=== PATIENT | female | born 1975 | race Two or more races ===

== ENCOUNTER 2016-08-19 01:55 | Inpatient (IN) | payer BC ==
[2016-08-19] MEDS ORDERED: ONDANSETRON HCL INJ/PF 4 MG/2 ML SDV IV ONE (03:46)
[2016-08-19] MEDS ORDERED: NORMAL SALINE 1000 ML 1,000 ML IV ONE ×2 (03:47→06:44)
[2016-08-19] MEDS ORDERED: FAMOTIDINE INJ/PF 20 MG/2 ML SDV IV ONE (03:47)
--- NOTE | 2016-08-19 04:10 | ER Document Report ---
ED General - General Chief Complaint: Abdominal Pain Stated Complaint: ABDOMINAL PAIN Notes: Patient is a 41-year-old female presents with complaint of upper abdominal pain. This occurred after eating [place] and chicken. She says she initially started having belching. Pain has been mainly epigastric and right upper quadrant pain. Some vomiting. No blood in her vomit. No dark stools. No blood in her stools. No other complaints at this time. No dysuria. No previous history of abdominal surgeries. TRAVEL OUTSIDE OF THE [place] IN LAST 30 DAYS: No - Related Data Allergies/Adverse Reactions: No Known Allergies Allergy (Unverified 08/19/16 02:10) Past Medical History - General Information source: Patient - Social History Smoking Status: Never Smoker Frequency of alcohol use: None Drug Abuse: None Family History: Reviewed & Not Pertinent Surgical Hx: Negative - Immunizations Hx Diphtheria, Pertussis, Tetanus Vaccination: Yes Review of Systems - Review of Systems Notes: My Normal Review Basic REVIEW OF SYSTEMS: CONSTITUTIONAL : Denies fever, chills, or sweats. Denies recent illness. RESPIRATORY: Denies cough, cold, or chest congestion. Denies shortness of breath, difficulty breathing, or wheezing. GASTROINTESTINAL: Gastric and right upper quadrant abdominal pain. Some nausea and vomiting.. Denies constipation. Last BM: GENITOURINARY: Denies difficulty urinating, painful urination, burning, frequency, or blood in urine. FEMALE GENITOURINARY: Denies vaginal bleeding, abnormal or irregular periods. MUSCULOSKELETAL: Denies neck or back pain or joint pain or swelling. SKIN: Denies rash or skin lesions. NEUROLOGICAL: Denies altered mental status or loss of consciousness. Denies headache. Denies weakness or paralysis or loss of use of either side. Denies problems with gait or speech. Denies sensory or motor loss. ALL OTHER SYSTEMS REVIEWED AND NEGATIVE. Physical Exam - Vital signs Vitals: Temp Pulse Resp BP Pulse Ox 97.7 F 85 22 H 135/71 H 100 08/19/16 02:04 08/19/16 02:04 08/19/16 02:04 08/19/16 02:04 08/19/16 02:04 - Notes Notes: General Appearance: Well nourished, alert, cooperative, no acute distress, mild to moderate obvious discomfort. Vitals: reviewed, See vital signs table. Head: no swelling or tenderness to the head Eyes: PERRL, EOMI, Conjuctiva clear Mouth: No decreasd moisture Neck: Supple, no neck tenderness, No thyromegaly Lungs: No wheezing, No rales, No rhonci, No accessory muscle use, good air exchange bilaterally. Heart: Normal rate, Regular rythm, No murmur, no rub Abdomen: Normal BS, soft, No rigidity, mild to moderate right upper quadrant and epigastric abdominal tenderness to palpation, pain is the worst over the epigastric region., No guarding, no rebound, no abdominal masses, no organomegaly Extremities: strength 5/5 in all extremities, good pulses in all extremities, no swelling or tenderness in the extremities, no edema. Skin: warm, dry, appropriate color, no rash Neuro: speech clear, oriented x 3, normal affect, responds appropriately to questions. Course - Vital Signs Vital signs: Temp Pulse Resp BP Pulse Ox 97.7 F 85 22 H 135/71 H 100 08/19/16 02:04 08/19/16 02:04 08/19/16 02:04 08/19/16 02:04 08/19/16 02:04 - Laboratory Result Diagrams: 08/19/16 04:10 08/19/16 04:10 Laboratory results interpreted by me: 08/19/16 08/19/16 04:10 04:10 WBC 14.6 H RDW 14.3 H Seg Neutrophils % 89.2 H Lymphocytes % 6.3 L Absolute Neutrophils 13.0 H Glucose 127 H AST 485 H ALT 284 H Lipase 23968.2 H - Transfer of Care Notes: 08/19/16 06:36 Patient has what appears to be gallstone pancreatitis. I did call and speak with Dr. Murray to evaluate the patient and will admit the patient. Dictation of this chart was performed using voice recognition software; therefore, there may be some unintended grammatical errors. Discharge - Discharge Clinical Impression: Gallstone pancreatitis Condition: Stable Disposition: ADMITTED INPATIENT Admitting Provider: Surgicalist Unit Admitted: Surgical Floor
[2016-08-19 04:34] LABS: ABSOLUTE LYMPHOCYTES (AUTO) 0.9 10^3/uL (0.5-4.7); ABSOLUTE MONOCYTES (AUTO) 0.6 10^3/uL (0.1-1.4); BASOPHILS % (AUTO) 0.1 % (0-2); EOSINOPHILS % (AUTO) 0.2 % (0-6); HEMATOCRIT 38.9 % (36.0-47.0); HEMOGLOBIN 13.3 g/dL (12.0-15.5); LYMPHOCYTES % (AUTO) 6.3 % (13-45); MEAN CORPUSCULAR HEMOGLOBIN 29.7 pg (27.0-33.4); MEAN CORPUSCULAR HGB CONC 34.1 g/dL (32.0-36.0); MEAN CORPUSCULAR VOLUME 87 fl (80-97); MONOCYTES % (AUTO) 4.2 % (3-13); RED BLOOD COUNT 4.46 10^6/uL (3.72-5.28); RED CELL DISTRIBUTION WIDTH 14.3 % (11.5-14.0); SEGMENTED NEUTROPHILS % (AUTO) 89.2 % (42-78); WHITE BLOOD COUNT 14.6 10^3/uL (4.0-10.5)
[2016-08-19 04:48] LABS: ALANINE AMINOTRANSFERASE 284 U/L (9-52); ALKALINE PHOSPHATASE 98 U/L (38-126); ANION GAP 11 (5-19); ASPARTATE AMINO TRANSFERASE 485 U/L (14-36); BILIRUBIN,TOTAL 0.8 mg/dL (0.2-1.3); BLOOD UREA NITROGEN 12 mg/dL (7-20); CALCIUM 9.5 mg/dL (8.4-10.2); CARBON DIOXIDE 29 mmol/L (22-30); CHLORIDE 103 mmol/L (98-107); CREATININE RESULT 0.57 mg/dL (0.52-1.25); GLUCOSE 127 mg/dL (75-110); SODIUM 142.5 mmol/L (137-145); TOTAL PROTEIN 7.4 g/dL (6.3-8.2)
[2016-08-19 05:26] LABS: LIPASE 29213.2 U/L (23-300)
--- NOTE | 2016-08-19 06:49 | PDOC H&P ---
History of Present Illness Admission Date/PCP: Daily Patient complains of: Abdominal pain History of Present Illness: CYDNEY MCINTOSH is a 41 year old female presents to the emergency department at [facility] via EMS complaining of abdominal pain, acute onset after eating, associated with nausea, bloating and excessive belching. She also had 2 serious episodes of vomiting. Symptoms similar to previous symptoms she has had over the past 3 years but but more severe and she thought she had a gallbladder problem but was never evaluated. sHe was seen in the emergency department by Dr. Sinan Williamson, found to have a lipase level of 29,000, and a gallbladder demonstrating gall stones. sHe was evaluated and felt to benefit from admission to the surgical service for definitive management. Past Surgical History Past Surgical History: Reports: None Social History Smoking Status: Never Smoker Frequency of Alcohol Use: None Hx Recreational Drug Use: No Hx Prescription Drug Abuse: No Family History Family History: Reviewed & Not Pertinent Parental Family History Reviewed: Yes Children Family History Reviewed: Yes Sibling(s) Family History Reviewed.: Yes Medication/Allergy Allergies/Adverse Reactions: No Known Allergies Allergy (Unverified 08/19/16 02:10) Review of Systems Constitutional: PRESENT: as per HPI Eyes: PRESENT: as per HPI Ears: PRESENT: as per HPI Nose, Mouth, and Throat: PRESENT: as per HPI Breasts: PRESENT: as per HPI Cardiovascular: PRESENT: as per HPI Respiratory: PRESENT: as per HPI Gastrointestinal: PRESENT: abdominal pain, bloating, other - Patient states she has normal bowel movements; never had a colonoscopy. Physical Exam Vital Signs: Temp Pulse Resp BP Pulse Ox 97.7 F 85 22 H 135/71 H 100 08/19/16 02:04 08/19/16 02:04 08/19/16 02:04 08/19/16 02:04 08/19/16 02:04 Intake & Output 08/17/16 08/18/16 08/19/16 06:59 06:59 06:59 Weight 67.1 kg General appearance: PRESENT: mild distress Head exam: PRESENT: normocephalic Eye exam: PRESENT: EOMI Ear exam: PRESENT: normal external ear exam Mouth exam: PRESENT: moist Neck exam: PRESENT: full ROM Respiratory exam: PRESENT: clear to auscultation eddie Cardiovascular exam: PRESENT: RRR Pulses: PRESENT: normal carotid pulses, normal radial pulses, normal femoral pulses GI/Abdominal exam: PRESENT: other - Abdomen slightly distended, tender especially epigastric area. No rigidity some guarding. Extremities exam: PRESENT: full ROM Musculoskeletal exam: PRESENT: full ROM Neurological exam: PRESENT: alert, altered, oriented to time, oriented to situation Psychiatric exam: PRESENT: anxious Skin exam: PRESENT: dry Results Laboratory Results: 08/19/16 04:10 08/19/16 04:10 08/19/16 08/19/16 04:10 04:10 WBC 14.6 H RBC 4.46 Hgb 13.3 Hct 38.9 MCV 87 MCH 29.7 MCHC 34.1 RDW 14.3 H Plt Count 229 Seg Neutrophils % 89.2 H Lymphocytes % 6.3 L Monocytes % 4.2 Eosinophils % 0.2 Basophils % 0.1 Absolute Neutrophils 13.0 H Absolute Lymphocytes 0.9 Absolute Monocytes 0.6 Absolute Eosinophils 0.0 Absolute Basophils 0.0 Sodium 142.5 Potassium 4.0 Chloride 103 Carbon Dioxide 29 Anion Gap 11 BUN 12 Creatinine 0.57 Est GFR ( Amer) > 60 Est GFR (Non-Af Amer) > 60 Glucose 127 H Calcium 9.5 Total Bilirubin 0.8 AST 485 H ALT 284 H Alkaline Phosphatase 98 Total Protein 7.4 Albumin 4.0 Lipase 93258.2 H Impressions: Abdomen Ultrasound 08/19/16 03:47 IMPRESSION: GALLSTONES. POSITIVE SONOGRAPHIC MATHEW SIGN. Status: Image reviewed by me Assessment & Plan - Diagnosis (1) Gallstone pancreatitis Is this a current diagnosis for this admission?: YesPlan: 1. Patient presents with classic gallstone pancreatitis. She is tender, without peritoneal signs. Management will include nothing by mouth, IV fluids, intravenous antibiotics, and bowel rest. Once her lipase level has normalized, she will be candidate for interval laparoscopic cholecystectomy with intraoperative cholangiography. The cholangiogram is abnormal, with the patient deteriorates in the interim, she may require ERCP. 2. We will also manage patient's pain. - Time Time Spent: 30 to 50 Minutes Critical Time spent with patient: 15-24 minutes Medications reviewed and adjusted accordingly: Yes Anticipated discharge: Home - Inpatient Certification Based on my medical assessment, after consideration of the patient's comorbidities, presenting symptoms, or acuity I expect that the services needed warrant INPATIENT care.: Yes I certify that my determination is in accordance with my understanding of Medicare's requirements for reasonable and necessary INPATIENT services [42 CFR 412.3e].: Yes Medical Necessity: Need For IV Fluids, Need for Pain Control, Need for IV Antibiotics, Need for Surgery
[2016-08-19] MEDS: ONDANSETRON HCL INJ/PF 4 MG/2 ML SDV IV PRN (07:07)
[2016-08-19] MEDS: MORPHINE SULFATE 10 MG/ML INJ IV PRN ×2 (07:07→11:58)
--- NOTE | 2016-08-19 08:50 | PDOC PROGRESS REPORT ---
Subjective Progress Note for:: 08/19/16 Subjective:: Patient denies nausea, vomiting, fever, she still having abdominal pain but it' s better. Physical Exam Vital Signs: Temp Pulse Resp BP Pulse Ox 97.8 F 79 18 123/73 96 08/19/16 07:42 08/19/16 07:42 08/19/16 07:42 08/19/16 07:42 08/19/16 07:42 General appearance: PRESENT: no acute distress, cooperative Head exam: PRESENT: atraumatic, normocephalic Respiratory exam: PRESENT: clear to auscultation eddie GI/Abdominal exam: PRESENT: soft, tenderness - In the epigastric area. ABSENT: distended, firm, guarding, rebound, rigid Neurological exam: PRESENT: alert, awake Results Impressions: Abdomen Ultrasound 08/19/16 03:47 IMPRESSION: GALLSTONES. POSITIVE SONOGRAPHIC MATHEW SIGN. Assessment & Plan - Diagnosis (1) Gallstone pancreatitis Is this a current diagnosis for this admission?: YesPlan: Patient is 41 years old female who came to the hospital with abdominal pain, she is having a clinical picture of gallstone pancreatitis with the presence of gallstones in the gallbladder, she has elevated lipase and deranged liver function test, plan: Patient to be kept nothing by mouth, IV hydration, pain control, serial examination, strict ins and outs, GI prophylaxis. Plan for interval laparoscopic cholecystectomy possible open before discharge. Patient expressed understanding and agree to proceed with the procedure.
[2016-08-19] MEDS: FAMOTIDINE INJ/PF 20 MG/2 ML SDV IV SCH ×2 (10:57→21:34)
[2016-08-19] MEDS ORDERED: INFLUENZA ADLT QUAD (36MOS+) 2016-17 VAC 0.5 ML SYR IM PRN (11:10)
[2016-08-19] MEDS ORDERED: ACETAMINOPHEN 325 MG TABLET PO PRN (11:20)
[2016-08-19] MEDS ORDERED: AMPICILLIN SODIUM/SULBACTAM NA 3 GM in NORMAL SALINE 100 ML IV SCH (14:00)
[2016-08-19] MEDS ORDERED: NORMAL SALINE 1000 ML 1,000 ML IV PRN (15:03)
[2016-08-20] MEDS: KETOROLAC TROMETHAMINE 60 MG/2 ML SDV IV PRN ×2 (02:14→15:04)
[2016-08-20] MEDS: ONDANSETRON HCL INJ/PF 4 MG/2 ML SDV IV PRN ×2 (02:14→12:51)
[2016-08-20 07:38] LABS: ABSOLUTE EOSINOPHILS # (AUTO) 0.1 10^3/uL (0.0-0.6); ABSOLUTE LYMPHOCYTES (AUTO) 1.4 10^3/uL (0.5-4.7); ABSOLUTE MONOCYTES (AUTO) 0.7 10^3/uL (0.1-1.4); ABSOLUTE NEUT (AUTO) 8.4 10^3/uL (1.7-8.2); BASOPHILS % (AUTO) 0.2 % (0-2); HEMATOCRIT 32.2 % (36.0-47.0); HGB HCT DIFFERENCE 1.4; LYMPHOCYTES % (AUTO) 13.4 % (13-45); MEAN CORPUSCULAR HEMOGLOBIN 29.9 pg (27.0-33.4); MEAN CORPUSCULAR HGB CONC 34.7 g/dL (32.0-36.0); MEAN CORPUSCULAR VOLUME 86 fl (80-97); MONOCYTES % (AUTO) 6.8 % (3-13); RED BLOOD COUNT 3.73 10^6/uL (3.72-5.28); RED CELL DISTRIBUTION WIDTH 14.2 % (11.5-14.0); SEGMENTED NEUTROPHILS % (AUTO) 78.6 % (42-78); WHITE BLOOD COUNT 10.7 10^3/uL (4.0-10.5)
[2016-08-20 07:39] LABS: HEMOGLOBIN 11.2 g/dL (12.0-15.5)
[2016-08-20 07:45] LABS: ALANINE AMINOTRANSFERASE 131 U/L (9-52); ALBUMIN 2.6 g/dL (3.5-5.0); ALKALINE PHOSPHATASE 66 U/L (38-126); ANION GAP 10 (5-19); ASPARTATE AMINO TRANSFERASE 66 U/L (14-36); BILIRUBIN,TOTAL 0.7 mg/dL (0.2-1.3); BLOOD UREA NITROGEN 7 mg/dL (7-20); CARBON DIOXIDE 22 mmol/L (22-30); CHLORIDE 109 mmol/L (98-107); GLUCOSE 62 mg/dL (75-110); POTASSIUM 3.3 mmol/L (3.6-5.0); SODIUM 140.5 mmol/L (137-145)
[2016-08-20] MEDS: POTASSI CL 20 MEQ/D5-1/2NS 1L 1,000 ML IV PRN ×2 (09:32→17:55)
[2016-08-20] MEDS: FAMOTIDINE INJ/PF 20 MG/2 ML SDV IV SCH ×2 (09:32→21:12)
--- NOTE | 2016-08-20 10:04 | PDOC PROGRESS REPORT ---
Subjective Progress Note for:: 08/20/16 Subjective:: Some nausea and abdominal pain. No vomiting. Physical Exam Vital Signs: Temp Pulse Resp BP Pulse Ox 98.6 F 74 16 108/57 L 98 08/20/16 08:13 08/20/16 08:13 08/20/16 08:13 08/20/16 08:13 08/20/16 08:13 Intake & Output 08/19/16 08/20/16 08/21/16 06:59 06:59 06:59 Intake Total 450 Output Total 400 Balance 50 Weight 68 kg General appearance: PRESENT: no acute distress, obese Eye exam: PRESENT: EOMI Mouth exam: PRESENT: tongue midline GI/Abdominal exam: PRESENT: soft, tenderness - Tender in her epigastrium, and less so, across her upper abdomen. No Cadena sign. No back pain.. ABSENT: distended, Cadena's sign Neurological exam: PRESENT: alert, oriented to situation Results Laboratory Results: 08/20/16 07:23 08/20/16 07:17 08/20/16 08/20/16 07:17 07:23 WBC 10.7 H RBC 3.73 Hgb 11.2 L D Hct 32.2 L MCV 86 MCH 29.9 MCHC 34.7 RDW 14.2 H Plt Count 166 Seg Neutrophils % 78.6 H Lymphocytes % 13.4 Monocytes % 6.8 Eosinophils % 1.0 Basophils % 0.2 Absolute Neutrophils 8.4 H Absolute Lymphocytes 1.4 Absolute Monocytes 0.7 Absolute Eosinophils 0.1 Absolute Basophils 0.0 Sodium 140.5 Potassium 3.3 L Chloride 109 H Carbon Dioxide 22 Anion Gap 10 BUN 7 Creatinine 0.50 L Est GFR ( Amer) > 60 Est GFR (Non-Af Amer) > 60 Glucose 62 L Calcium 8.0 L Total Bilirubin 0.7 AST 66 H ALT 131 H Alkaline Phosphatase 66 Total Protein 5.0 L Albumin 2.6 L Lipase 2095.0 H Impressions: Abdomen Ultrasound 08/19/16 03:47 IMPRESSION: GALLSTONES. POSITIVE SONOGRAPHIC CADENA SIGN. Assessment & Plan - Diagnosis (1) Gallstone pancreatitis Is this a current diagnosis for this admission?: YesPlan: Lipase is down to 2095 from 29,213. Pain is present but decreased compared to yesterday. We discussed gallstone pancreatitis in detail. Pictures were drawn. We discussed laparoscopic cholecystectomy in detail. Questions were answered. We discussed the risks, benefits and alternatives including , heart attack, stroke, blood clots in the legs, blood clots in lungs, pneumonia, bleeding, infection, hernia, bile leak, failure of symptoms to resolve, long- term diarrhea, damage to surrounding structures such as bladder, bowels, blood vessels or bile duct resulting in serious long-term health issues. We discussed the possibility of retained stone with need for further procedure such as ERCP. we discussed that we need to wait for further improvement in pain and normalization of her lipase to proceed with gallbladder surgery. She understands.
[2016-08-20] MEDS: MORPHINE SULFATE 10 MG/ML INJ IV PRN (12:36)
[2016-08-21] MEDS: POTASSI CL 20 MEQ/D5-1/2NS 1L 1,000 ML IV PRN ×2 (01:39→09:14)
[2016-08-21 07:56] LABS: ALANINE AMINOTRANSFERASE 93 U/L (9-52); ALBUMIN 3.1 g/dL (3.5-5.0); ALKALINE PHOSPHATASE 57 U/L (38-126); ANION GAP 9 (5-19); ASPARTATE AMINO TRANSFERASE 37 U/L (14-36); BILIRUBIN,TOTAL 0.7 mg/dL (0.2-1.3); BLOOD UREA NITROGEN 3 mg/dL (7-20); CALCIUM 8.7 mg/dL (8.4-10.2); CARBON DIOXIDE 23 mmol/L (22-30); CHLORIDE 110 mmol/L (98-107); CREATININE RESULT 0.47 mg/dL (0.52-1.25); GLUCOSE 106 mg/dL (75-110); LIPASE 502.7 U/L (23-300); SODIUM 141.6 mmol/L (137-145); TOTAL PROTEIN 5.7 g/dL (6.3-8.2)
[2016-08-21] MEDS ORDERED: BUPIVACAINE HCL 0.25 % INJ/PF (2.5 MG/1 ML) 30 ML VIAL ONE (08:44)
[2016-08-21] MEDS ORDERED: KETOROLAC TROMETHAMINE INJ/PF 30 MG/1 ML SDV IV PRN (10:04)
[2016-08-21] MEDS ORDERED: HYDROMORPHONE HCL INJ/PF 2 MG/ML AMPULE ONE (10:06)
[2016-08-21] MEDS ORDERED: FENTANYL CITRATE INJ/PF 250 MCG/5 ML AMPULE ONE (10:06)
[2016-08-21] MEDS ORDERED: MIDAZOLAM 2 MG/2 ML INJ ONE (10:06)
[2016-08-21] MEDS ORDERED: ACETAMINOPHEN 100 ML IV ONE (10:07)
[2016-08-21] MEDS ORDERED: PROPOFOL INJ 200 MG/20 ML VIAL IV ONE (10:07)
--- NOTE | 2016-08-21 10:10 | PDOC PROGRESS REPORT ---
Subjective Progress Note for:: 08/21/16 Subjective:: Patient states she feels better Physical Exam Vital Signs: Temp Pulse Resp BP Pulse Ox 98.9 F 83 16 119/61 100 08/21/16 09:01 08/21/16 09:01 08/21/16 09:01 08/21/16 09:01 08/21/16 09:01 Intake & Output 08/20/16 08/21/16 08/22/16 06:59 06:59 06:59 Intake Total 450 1500 Output Total 400 Balance 50 1500 Weight 68 kg 68 kg General appearance: PRESENT: no acute distress GI/Abdominal exam: PRESENT: other - Much less tender abdomen in the epigastric area. No peritoneal signs no rigidity. Results Laboratory Results: 08/20/16 07:23 08/21/16 07:24 08/20/16 08/21/16 08/21/16 07:17 07:24 07:24 Sodium 141.6 Potassium 4.0 Chloride 110 H Carbon Dioxide 23 Anion Gap 9 BUN 3 L Creatinine 0.47 L Est GFR ( Amer) > 60 Est GFR (Non-Af Amer) > 60 Glucose 106 Calcium 8.7 Magnesium 1.9 Total Bilirubin 0.7 AST 37 H ALT 93 H Alkaline Phosphatase 57 Total Protein 5.7 L Albumin 3.1 L Lipase 502.7 H Serum HCG, Qual NEGATIVE Impressions: Abdomen Ultrasound 08/19/16 03:47 IMPRESSION: GALLSTONES. POSITIVE SONOGRAPHIC MATHEW SIGN. Assessment & Plan - Diagnosis (1) Gallstone pancreatitis Is this a current diagnosis for this admission?: YesPlan: 1. Patient is clinically improved, and lipase diminished to near normal. Her abdomen is fairly benign. I think it is safe to proceed with laparoscopic possible open cholecystectomy, with intraoperative cholangiography. I reviewed the risks benefits and alternatives as well as the mechanics of the operation to the patient. Believe she understands and agrees to proceed. 2. Patient understands that her for her cholangiogram demonstrates retained common bile duct stone, she will need postoperative ERCP. Again, she agrees to proceed.
[2016-08-21] MEDS ORDERED: CEFAZOLIN INJ 1 GM VIAL ONE (10:20)
[2016-08-21] MEDS ORDERED: CEFAZOLIN SODIUM 1 GM in DEXTROSE 5%-WATER 50 ML IV PRN (10:42)
[2016-08-21] MEDS ORDERED: PROMETHAZINE HCL INJ 25 MG/1 ML VIAL IV PRN ×2 (10:58)
[2016-08-21] MEDS ORDERED: MEPERIDINE HCL/PF INJ 25 MG/1 ML DISP.SYRIN IV PRN (10:58)
[2016-08-21] MEDS ORDERED: MORPHINE SULFATE 10 MG/ML INJ IV PRN (10:58)
[2016-08-21] MEDS ORDERED: FENTANYL CITRATE INJ/PF 100 MCG/2 ML AMPUL IV PRN ×3 (10:58)
[2016-08-21] MEDS ORDERED: DIPHENHYDRAMINE HCL 50 MG/ML VIAL IV PRN (10:58)
[2016-08-21] MEDS ORDERED: OXYCODONE-ACETAMINOPHEN 5-325 MG TABLET PO PRN ×2 (10:58)
[2016-08-21] MEDS: FAMOTIDINE INJ/PF 20 MG/2 ML SDV IV SCH ×2 (11:13→22:31)
--- NOTE | 2016-08-21 11:45 | Operative Report ---
Operative Report DATE OF SURGERY: 08/21/16 PREOPERATIVE DIAGNOSIS: Symptomatic cholelithiasis cholecystitis. Gallstone pancreatitis POSTOPERATIVE DIAGNOSIS: Same; no evidence of retained common bile duct stone OPERATION: 1. Laparoscopic cholecystectomy. 2. Operative cholangiography. 3. Interpretation of intraoperative cholangiography SURGEON: MANDEEP ERICKSON ANESTHESIA: GA TISSUE REMOVED OR ALTERED: gallbladder COMPLICATIONS: None ESTIMATED BLOOD LOSS: scant INTRAOPERATIVE FINDINGS: See below PROCEDURE: After obtaining informed consent, the patient was taken to the operating room. General Anesthesia was induced; the arms were extended, and the abdomen was exposed, and prepped and draped in a sterile fashion. Instrumentation was set up for laparoscopic cholecystectomy. Surgical plan and surgical timeout were conducted. A vertical incision was made above the umbilicus, and a verres needle was inserted uneventfully into the peritoneal cavity. Pneumoperitoneum was established. The verres needle was removed and a 5 mm trocar was inserted and a 5 mm flexible laparoscope was inserted. Visualization of the peritoneal cavity confirmed safe uneventful entry. Under direct visualization 3 additional 5 mm ports were established, one in the subxiphoid position and second in the subcostal position. There was a moderate amount of amount of dilute bilious fluid in the peritoneal cavity which was aspirated. There was moderate adhesions between the gallbladder and the gastroduodenal area which were taken down with blunt dissection. Visualization of the hepatobiliary anatomy revealed no anatomic variations. A grasper was placed on the fundus of the gallbladder and the gallbladder is elevated over the right surface of the liver ; a second grasper was used to grasp the infundibulum of the gallbladder. The neck of the gallbladder and junction with the cystic duct was dissected out. The Cystic artery was in its usual location medial and cephalad to the cystic duct. The cystic artery was surrounded with a right angle clamp, clipped twice proximally and divided with laparoscopic scissors. We now opened the triangle of Calot by dividing the peritoneal reflection on both the medial and lateral sides of the cystic duct infundibular junction. The critical view was obtained. Multiple photos were taken. At this point we felt the cholangiography was in indicated given the history of gallstone pancreatitis. Patient's preoperative LFTs were within normal limits. Her common bile duct preoperatively on ultrasound was described as normal. The cystic duct was clipped on the gallbladder side 1 time. A small opening was made in the cystic duct with scissors, and a percutaneous cholangiogram catheter was threaded through the anterior abdominal wall. The stylette was removed and the catheter was threaded into the cystic duct stump to approximately 2 cm. His clipped into position Laparoscopic instruments were moved out of the way, patient leveled out, and fluoroscopy brought onto the field Full strength contrast Isovue was injected into the cholangiogram catheter approximately 10 mL. Intraoperative cholangiography revealed no evidence of biliary tract leak, excellent visualization of the proximal mid and distal biliary tract anatomy. It was rapid egress into the duodenum. There was a peak at the ampulla consistent with physiologic to the and normal anatomy. We felt the cholangiogram was complete. We removed the cholangiocatheter, and We now milked the cystic duct of any possible stones, clipped the cystic duct approximately 2 times then divided it with scissors. The gallbladder was now removed from the undersurface of the liver using hook cautery dissection. Graspers were repositioned and the gallbladder was removed uneventfully from the abdominal cavity through the super umbilical port site incision. The specimen was examined, then passed off to pathology for permanent analysis. We returned to the peritoneal cavity check for bleeding, and evidence of bile leak, and there was none. We Confirmed satisfactory placement of clips on cystic duct and cystic artery were secured . At this point we felt the operation was complete. The subcutaneous tissue was then anesthetized with quarter percent Marcaine Sponge and needle counts are correct. All ports removed under direct visualization pneumoperitoneum evacuated, and 5 mm port wounds closed with 3-0 Vicryl suture, benzoin and Steri-Strips. The patient was extubated, and taken to the recovery room in stable condition.
[2016-08-21] MEDS ORDERED: ONDANSETRON HCL INJ/PF 4 MG/2 ML SDV ONE (13:19)
[2016-08-21] MEDS ORDERED: NEOSTIGMINE METHYLSULFATE 10 MG/10 ML VIAL ONE (13:19)
[2016-08-21] MEDS ORDERED: SUCCINYLCHOLINE CHLORIDE INJ 200 MG/10 ML VIAL ONE (13:19)
[2016-08-21] MEDS ORDERED: GLYCOPYRROLATE INJ 0.4 MG/2 ML VIAL ONE (13:19)
[2016-08-21] MEDS ORDERED: ROCURONIUM BROMIDE INJ 50 MG/5 ML VIAL IV ONE (13:19)
[2016-08-21] MEDS ORDERED: DEXAMETHASONE SOD PHOSPHATE INJ 4 MG/1 ML VIAL ONE (13:19)
[2016-08-21] MEDS: ONDANSETRON HCL INJ/PF 4 MG/2 ML SDV IV PRN (14:30)
[2016-08-22] MEDS: FAMOTIDINE INJ/PF 20 MG/2 ML SDV IV SCH (11:06)
[2016-08-22] MEDS ORDERED: HYDROCODONE/ACETAMINOPHEN 5-325 MG TABLET PO PRN (13:49)
--- NOTE | 2016-08-22 13:57 | PDOC DISCHARGE SUMMARY ---
General - Admit/Disc Date/PCP Admission Date/Primary Care Provider: 08/19/16 06:37 Discharge Date: 08/22/16 - Discharge Diagnosis (1) Gallstone pancreatitis Is this a current diagnosis for this admission?: YesSummary: Pain and lipase significantly decreased. Patient underwent laparoscopic cholecystectomy with cholangiogram. - Additional Information Resuscitation Status: Full Code Discharge Diet: Regular Discharge Activity: No Lifting Over 10 Pounds, Walk Frequently Home Medications: Hydrocodone/Acetaminophen [Cameron 5-325 mg Tablet] 1 tab PO Q4HP PRN #10 tablet 08/22/16 History of Present Illness History of Present Illness: CYDNEY MCINTOSH is a 41 year old female presented with abdominal pain. She was evaluated and found to have gallstone pancreatitis. Lipase was 29,000. Patient was admitted on 08/19/2016. Lipase and abdominal pain decreased significantly. Patient was taken to the operative suite on 08/21/2016. Laparoscopic cholecystectomy with cholangiogram was performed. Patient was readmitted to the floor postoperatively. Patient did well, diet was advanced, patient was ambulating, passing gas, urinating without difficulty. Patient was discharged home on 08/22/2016. Hospital Course Hospital Course: CYDNEY MCINTOSH is a 41 year old female presented with abdominal pain. She was evaluated and found to have gallstone pancreatitis. Lipase was 29,000. Patient was admitted on 08/19/2016. Lipase and abdominal pain decreased significantly. Patient was taken to the operative suite on 08/21/2016. Laparoscopic cholecystectomy with cholangiogram was performed. Patient was readmitted to the floor postoperatively. Patient did well, diet was advanced, patient was ambulating, passing gas, urinating without difficulty. Patient was discharged home on 08/22/2016. Physical Exam Vital Signs: Temp Pulse Resp BP Pulse Ox 98.7 F 70 16 125/71 100 08/22/16 11:14 08/22/16 11:14 08/22/16 11:14 08/22/16 11:14 08/22/16 11:14 Intake & Output 08/21/16 08/22/16 08/23/16 06:59 06:59 06:59 Intake Total 1500 2885 Output Total 520 Balance 1500 2365 Weight 67.6 kg 67.6 kg General appearance: PRESENT: no acute distress, obese Head exam: PRESENT: normocephalic Eye exam: PRESENT: EOMI Mouth exam: PRESENT: tongue midline GI/Abdominal exam: PRESENT: soft, tenderness - Normal tenderness with palpation to incisions only. Otherwise nontender. Incisions clean dry and intact with Steri-Strips.. ABSENT: distended Neurological exam: PRESENT: alert, oriented to situation Psychiatric exam: PRESENT: appropriate affect, normal mood Results Laboratory Results: 08/20/16 07:23 08/21/16 07:24 Impressions: Abdomen Ultrasound 08/19/16 03:47 IMPRESSION: GALLSTONES. POSITIVE SONOGRAPHIC MATHEW SIGN. Cholangiogram 08/21/16 00:00 IMPRESSION: INTRAOPERATIVE CHOLANGIOGRAM. Plan Discharge Plan: Regular diet. Walk frequently. No lifting greater than 10 pounds for 2 weeks. Starting tomorrow, shower daily. Start bowel regimen to prevent constipation while on narcotics. Follow up in surgery clinic in 2 weeks.
[2016-08-22 14:24] VITALS: BP 119/64
== END 2016-08-22 14:55 | disposition home or self-care (01) | DRG 419 ==
LOC: ER 01:55 → EH 06:37 → UNDOADMIN 06:43 → 3W 10:05 → 2N 14:25
PROVIDERS: ATTEND Surgery
PROC: BF031ZZ Plain Radiography of Gallbladder and Bile Ducts using Low Osmolar Contrast (ICD-10-PCS; 2016-08-21)
PROC: 0FT44ZZ Resection of Gallbladder, Percutaneous Endoscopic Approach (ICD-10-PCS; principal; 2016-08-21 10:00)
DX: K85.10 Biliary acute pancreatitis without necrosis or infection (principal)
CPT/HCPCS: 36415; 74300; 76705; 790; 80053; 83690; 83735; 84703; 85025; 88304; 90686; 93976; 94799; 96361; 96374; 96375; 99285; J0131; J0330; J0690; J1100; J1170; J1885; J2250; J2270; J2405; J2704; J3010; J3480; J3490; J7030; S0028